=== PATIENT | female | born 1980 | race Caucasian/White ===

== ENCOUNTER 2018-02-25 10:59 | Emergency (ER) | payer OTHER ==
[~2018-02-25] VITALS: Ht 177.8 cm; Wt 95.5 kg
[2018-02-25 11:57] VITALS: BP 132/86
[2018-02-25 12:15] LABS: URINE HCG NEGATIVE (NEG)
== END 2018-02-25 13:30 | disposition home or self-care (01) ==
LOC: EEVIPCON 11:00 → ER 11:00
DX: T76.21XA Adult sexual abuse, suspected, initial encounter (principal); Z91.010 Allergy to peanuts; Z91.018 Allergy to other foods
CPT/HCPCS: 81025; 99284

== ENCOUNTER 2018-05-26 15:36 | Emergency (ER) | payer OTHER ==
[~2018-05-26] VITALS: Ht 177.8 cm; Wt 90.9 kg
[2018-05-26 15:37] VITALS: BP 126/72
== END 2018-05-26 16:26 | disposition home or self-care (01) ==
LOC: ER 15:36
DX: M25.531 Pain in right wrist (principal); Z88.1 Allergy status to other antibiotic agents; Z91.018 Allergy to other foods; Z91.010 Allergy to peanuts; X50.0XXA Overexertion from strenuous movement or load, initial encounter; Y93.89 Activity, other specified; Y92.89 Other specified places as the place of occurrence of the external cause; Y99.8 Other external cause status
CPT/HCPCS: 29125; 73130; 99283